=== PATIENT | male | born 1965 | race Caucasian/White ===

== ENCOUNTER 2023-10-01 08:13 | Emergency (ER) | payer OTHER ==
[~2023-10-01] VITALS: Ht 167.6 cm; Wt 77.1 kg
[2023-10-01 08:20] VITALS: BP 125/81; PULSE 66; RESP 18; TEMP 97.7; O2SAT 99
[2023-10-01] MEDS: LIDOCAINE 5% 1 EA PATCH TP ONE (09:19)
[2023-10-01] MEDS: ACETAMINOPHEN 325 MG TAB PO ONE (09:21)
[2023-10-01] MEDS: KETOROLAC 30 MG/ML VIAL IM ONE (09:22)
[2023-10-01] MEDS ORDERED: LIDO5TDM45 TP (10:26)
[2023-10-01] MEDS ORDERED: IBUP-2213 PO (10:26)
== END 2023-10-01 10:35 | disposition home or self-care (01) ==
LOC: MED 08:13
DX: M54.50 Low back pain, unspecified (principal); Z79.899 Other long term (current) drug therapy
CPT/HCPCS: 72100; 96372; 99283; J1885